=== PATIENT | female | born 2000 | race Caucasian/White ===

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

== ENCOUNTER 2022-02-19 10:29 | Emergency (ER) | payer OTHER ==
[~2022-02-19] VITALS: Ht 162.6 cm; Wt 97.0 kg
[~2022-02-19 10:29] MED LIST: BACTRIM DS1 TAB PO; METFORMIN HCL500 M2 PO; ONDANSETRON4 MG PO; TRULICITY4.5 MG/0.5 IM
[2022-02-19] MEDS ORDERED: BACTRIM DS1 TAB PO (11:32)
[2022-02-19] MEDS ORDERED: KEFLEX500 MG PO (11:32)
[2022-02-19] MEDS ORDERED: LORTAB 1010 MG PO (11:32)
[2022-02-19 11:35] VITALS: BP 136/87
== END 2022-02-19 11:49 | disposition home or self-care (01) | DRG 603 ==
LOC: ED 10:29
PROC: 0H9BXZZ Drainage of Right Upper Arm Skin, External Approach (ICD-10-PCS; principal; 2022-02-19)
DX: L02.411 Cutaneous abscess of right axilla (principal); B95.61 Methicillin susceptible Staphylococcus aureus infection as the cause of diseases classified elsewhere; E11.9 Type 2 diabetes mellitus without complications; J45.909 Unspecified asthma, uncomplicated; F41.9 Anxiety disorder, unspecified; F32.A Depression, unspecified; F17.290 Nicotine dependence, other tobacco product, uncomplicated; Z79.84 Long term (current) use of oral hypoglycemic drugs

== ENCOUNTER 2022-10-21 20:26 | Emergency (ER) | payer MEDICAID ==
[~2022-10-21] VITALS: Ht 162.6 cm; Wt 104.3 kg
[~2022-10-21 20:26] MED LIST changes: +KEFLEX500 MG PO; +LORTAB 1010 MG PO
[2022-10-21 20:36] VITALS: BP 128/99
[2022-10-21] MEDS ORDERED: NAPROXEN500 MG PO (21:32)
[2022-10-21 21:47] VITALS: BP 128/99
== END 2022-10-21 21:48 | disposition home or self-care (01) ==
LOC: ED 20:26
DX: S83.92XA Sprain of unspecified site of left knee, initial encounter (principal); E11.9 Type 2 diabetes mellitus without complications; J45.909 Unspecified asthma, uncomplicated; F41.9 Anxiety disorder, unspecified; W01.0XXA Fall on same level from slipping, tripping and stumbling without subsequent striking against object, initial encounter; Y92.009 Unspecified place in unspecified non-institutional (private) residence as the place of occurrence of the external cause; F32.A Depression, unspecified; Z79.84 Long term (current) use of oral hypoglycemic drugs

== ENCOUNTER 2023-03-24 18:56 | Emergency (ER) | payer MEDICAID ==
[~2023-03-24] VITALS: Ht 162.6 cm; Wt 100.0 kg
[~2023-03-24 18:56] MED LIST changes: +NAPROXEN500 MG PO
[2023-03-24] MEDS ORDERED: BACTRIM DS1 TAB PO (19:36)
[2023-03-24] MEDS ORDERED: BACTROBAN TOP (19:36)
[2023-03-24 19:54] VITALS: BP 104/72
== END 2023-03-24 20:12 | disposition home or self-care (01) ==
LOC: ED 18:56
DX: L02.411 Cutaneous abscess of right axilla (principal); B95.61 Methicillin susceptible Staphylococcus aureus infection as the cause of diseases classified elsewhere; I10 Essential (primary) hypertension; E11.9 Type 2 diabetes mellitus without complications; J45.909 Unspecified asthma, uncomplicated; F41.9 Anxiety disorder, unspecified; F32.A Depression, unspecified; Z79.84 Long term (current) use of oral hypoglycemic drugs

== ENCOUNTER 2023-06-19 16:59 | Emergency (ER) | payer OTHER ==
[~2023-06-19] VITALS: Ht 162.6 cm; Wt 99.7 kg
[~2023-06-19 16:59] MED LIST changes: +BACTROBAN TOP
[2023-06-19 17:18] VITALS: BP 111/70
[2023-06-19 17:50] LABS: URINE BILIRUBIN - DIPSTICK Negative (NEGATIVE); URINE BLOOD DIPSTICK Negative (NEGATIVE); URINE GLUCOSE - DIPSTICK >=1000 mg/dL (NEGATIVE); URINE KETONE 15 mg/dL (NEGATIVE); URINE LEUK ESTERASE Negative (NEGATIVE); URINE NITRITE - DIPSTICK Negative (Negative); URINE PH 5.5 (4.5-8.0); URINE PROTEIN - DIPSTICK Negative (NEG-TRACE); URINE UROBILINOGEN - DIPSTICK 0.2 E.U./dL (0.2)
[2023-06-19 17:51] LABS: URINE COLOR Yellow
[2023-06-19 18:26] LABS: BASO% 0.4 % (0-3); EOS% 0.9 % (0-8); HEMATOCRIT 44.3 % (37.0-47.0); HEMOGLOBIN 14.9 g/dl (12.0-16.0); IMMATURE GRANULOCYTES 0.3 % (0.0-5.0); LYMPH% 30.7 % (15-41); MEAN CELL VOLUME 83.9 fL CALC (80.0-100.0); MEAN CORPUSCULAR HGB 28.2 pG CALC (26.0-32.0); MEAN CORPUSCULAR HGB CONC 33.6 g/dL CAL (32.0-36.0); MONO% 6.3 % (2-13); NEUT# 4.92 thou/uL (2.00-7.15); NEUT% 61.4 % (42-76); RED BLOOD COUNT 5.28 mill/uL (4.20-5.60); RED CELL DISTRI WIDTH 13.2 % (11.5-15.5)
[2023-06-19 18:43] LABS: ALBUMIN 4.3 g/dL (3.2-5.0); ALKALINE PHOSPHATASE 104 u/l (38-126); ANION GAP 17 (6-22 (CALC)); BILIRUBIN, TOTAL 0.4 mg/dL (0.02-1.3); BUN 13 mg/dL (7-17); BUN/CREATININE RATIO 34 (12-20 (CALC)); CARBON DIOXIDE 25 mmol/l (22-30); CHLORIDE 98 mmol/l (95-108); CREATININE 0.4 mg/dL (0.5-1.0); GFR FOR AFR.AMER. > 60 ML/MIN (>=60 (CALC)); GFR OTHER RACES > 60 ML/MIN (>=60 (CALC)); LIPASE 74 u/l (23-300); POTASSIUM 4.2 mmol/l (3.5-5.1); SGOT/AST 36 u/l (14-36); SODIUM 136 mmol/l (137-146); TOTAL PROTEIN 7.9 g/dL (6.3-8.2)
[2023-06-19 20:16] VITALS: BP 119/83
[2023-06-19 20:31] VITALS: BP 113/75
[2023-06-19 21:01] VITALS: BP 109/63
== END 2023-06-19 21:40 | disposition home or self-care (01) | DRG 392 ==
LOC: ED 16:59
PROVIDERS: Nurse Practitioner
DX: R10.84 Generalized abdominal pain (principal); I10 Essential (primary) hypertension; E11.9 Type 2 diabetes mellitus without complications; J45.909 Unspecified asthma, uncomplicated; F41.9 Anxiety disorder, unspecified; F32.A Depression, unspecified; Z79.84 Long term (current) use of oral hypoglycemic drugs
CPT/HCPCS: Q9967

== ENCOUNTER 2023-08-07 11:51 | Emergency (ER) | payer OTHER ==
[~2023-08-07] VITALS: Ht 162.6 cm; Wt 99.0 kg
[~2023-08-07 11:51] MED LIST changes: +ZOFRAN4 MG/TAB PO
[2023-08-07 12:15] VITALS: BP 117/76
[2023-08-07 12:30] VITALS: BP 125/80
[2023-08-07 12:46] VITALS: BP 120/87
[2023-08-07] MEDS ORDERED: FLOXIN OTIC0.3 % AS (13:03)
[2023-08-07 13:14] VITALS: BP 120/87
== END 2023-08-07 13:14 | disposition home or self-care (01) | DRG 156 ==
LOC: ED 11:51
DX: H60.92 Unspecified otitis externa, left ear (principal); I10 Essential (primary) hypertension; E11.9 Type 2 diabetes mellitus without complications; J45.909 Unspecified asthma, uncomplicated; F41.9 Anxiety disorder, unspecified; F32.A Depression, unspecified; Z79.85 Long-term (current) use of injectable non-insulin antidiabetic drugs; Z79.84 Long term (current) use of oral hypoglycemic drugs

== ENCOUNTER 2023-08-11 20:16 | Emergency (ER) | payer OTHER ==
[~2023-08-11 20:16] MED LIST changes: +FLOXIN OTIC0.3 % AS
[2023-08-12] MEDS ORDERED: AMOX/K CLAV875 M1 PO (20:05)
[2023-08-12] MEDS ORDERED: MEDDOSEPAK PO (20:48)
== END 2023-08-11 20:45 | disposition left against medical advice (07) | DRG 951 ==
LOC: ED 20:16 → LWOBS 20:45
DX: Z53.21 Procedure and treatment not carried out due to patient leaving prior to being seen by health care provider (principal)

== ENCOUNTER 2023-08-12 15:57 | Emergency (ER) | payer OTHER ==
[~2023-08-12] VITALS: Ht 162.6 cm; Wt 99.7 kg
[2023-08-12] MEDS ORDERED: AMOX/K CLAV875 M1 PO (20:05)
[2023-08-12] MEDS ORDERED: MEDDOSEPAK PO (20:48)
[2023-08-12 20:55] VITALS: BP 126/84
== END 2023-08-12 20:56 | disposition home or self-care (01) | DRG 156 ==
LOC: ED 15:57
DX: H60.92 Unspecified otitis externa, left ear (principal); I10 Essential (primary) hypertension; E11.9 Type 2 diabetes mellitus without complications; J45.909 Unspecified asthma, uncomplicated; F41.9 Anxiety disorder, unspecified; F32.A Depression, unspecified; Z79.85 Long-term (current) use of injectable non-insulin antidiabetic drugs; Z79.84 Long term (current) use of oral hypoglycemic drugs

== ENCOUNTER 2024-10-08 08:13 | Emergency (ER) | payer OTHER ==
[~2024-10-08] VITALS: Ht 162.6 cm; Wt 108.4 kg
[2024-10-08] VITALS (10 sets, daily range): BP systolic 109–132; BP diastolic 71–113
[~2024-10-08 08:13] MED LIST changes: +AMOX/K CLAV875 M1 PO; +CORTISPORIN OTI10 ML AD; +MEDDOSEPAK PO
[2024-10-08] MEDS ORDERED: KETOROLAC TROMETHAMINE 30 MG/ML SDV IM ONE (08:50)
[2024-10-08] MEDS ORDERED: FLEXERIL5 M1 PO (11:02)
[2024-10-08] MEDS ORDERED: EC-NAPROXEN500 MG PO (11:02)
== END 2024-10-08 11:25 | disposition home or self-care (01) | DRG 563 ==
LOC: ED 08:13
DX: S86.912A Strain of unspecified muscle(s) and tendon(s) at lower leg level, left leg, initial encounter (principal); I10 Essential (primary) hypertension; E11.9 Type 2 diabetes mellitus without complications; J45.909 Unspecified asthma, uncomplicated; F41.9 Anxiety disorder, unspecified; F32.A Depression, unspecified; Z79.85 Long-term (current) use of injectable non-insulin antidiabetic drugs; Z79.84 Long term (current) use of oral hypoglycemic drugs; W19.XXXA Unspecified fall, initial encounter; Y92.002 Bathroom of unspecified non-institutional (private) residence as the place of occurrence of the external cause